=== PATIENT | female | born 1970 | race Caucasian/White ===

== ENCOUNTER 2020-06-09 16:00 | Outpatient (CLI) | payer OTHER, SELFPAY ==
[2020-06-09 19:26] LABS: Add Urine Microscopic? YES; Appearance Urine Cloudy (Clear); Bacteria Urine 1+ /hpf; Bilirubin Urine Negative (Negative); Blood Urine 3+ (Negative); Color Urine Yellow (Yellow); Glucose Urine UA Negative (Negative); Ketones Urine Trace mg/dL (Negative); Leukocyte Esterase Ur 3+ LEU/UL (NEGATIVE); Mucus Urine Few /lpf; Nitrate Urine Positive (Negative); Protein Urine 2+ mg/dL (Negative); RBC Urine 21-50 /hpf (0-2); Squamous Epithelial Cell Urine Many /hpf (Few); Urobilinogen Urine Negative mg/dL (<2.0); WBC Clumps Urine Present /HPF; WBC Urine >75 /hpf (0-3)
[2020-06-09 19:47] LABS: Vitamin D 25 Hydroxy 58.6 ng/mL
== END 2020-06-09 16:01 | disposition home or self-care (01) ==
PROVIDERS: PCP Family Medicine; Visit Provider Family Medicine
DX: R79.89 Other specified abnormal findings of blood chemistry (principal); N39.0 Urinary tract infection, site not specified; J45.909 Unspecified asthma, uncomplicated
CPT/HCPCS: 36415; 81001; 82306; 87077; 87086; 87088; 87186

== ENCOUNTER 2020-10-03 10:52 | Outpatient (CLI) | payer OTHER, SELFPAY ==
[2020-10-04 10:41] LABS: Add Urine Microscopic? YES; Appearance Urine Clear (Clear); Bilirubin Urine Negative (Negative); Blood Urine 1+ (Negative); Color Urine Yellow (Yellow); Glucose Urine UA Negative (Negative); Ketones Urine Trace mg/dL (Negative); Leukocyte Esterase Ur 3+ LEU/UL (NEGATIVE); Mucus Urine Rare /lpf; Nitrate Urine Negative (Negative); Protein Urine Negative (Negative); RBC Urine 0-2 /hpf (0-2); Specific Grav Ur 1.012 (1.001-1.035); Squamous Epithelial Cell Urine Many /hpf (Few); Urobilinogen Urine Negative mg/dL (<2.0)
== END 2020-10-03 10:53 | disposition home or self-care (01) ==
LOC: ANHBWCLAB 10:56
PROVIDERS: PCP Family Medicine; Visit Provider Family Medicine
DX: N39.0 Urinary tract infection, site not specified (principal)
CPT/HCPCS: 81001; 87086; 87088

== ENCOUNTER → 2020-10-27 13:39 | Outpatient (CLI) | payer OTHER, SELFPAY ==
--- NOTE | ~2020-10-27 | XR_ITS ---
EXAMINATION: XR abdomen/kub 1V INDICATION: Gross hematuria TECHNIQUE: Supine views of the abdomen were obtained on 2 radiographs. COMPARISON: None FINDINGS: No urolithiasis is identified. The bowel gas pattern is normal. Cholecystectomy clips are p resent in the right upper quadrant. The visualized lung bases are clear. IMPRESSION: 1. No urolithiasis identified. Reviewed, dictated and finalized at location B.
--- NOTE | ~2020-10-27 | CT_ITS ---
EXAMINATION: CT abdomen pelvis wo/w con DATE: 10/27/2020 14:26 INDICATION: Gross hematuria TECHNIQUE: Computed tomography (CT) of the abdomen and pelvis was performed without intravenous contr ast. CT of the abdomen and pelvis was then performed with a total of 130 mL Omnipaque 350 intravenous contrast using a double-bolus technique for simultaneous opacification of the renal parenchyma and r enal collecting system. The dose-length product (DLP) was 1987.31 mGy-cm. Automated exposure control and iterative reconstruction technique were employed. COMPARISON: None FINDINGS: The lung bases are clear. The heart size is normal. The gallbladder is surgically absent. T he liver, spleen, pancreas, and adrenal glands are normal. Hypoattenuating lesions in the kidneys, me asuring up to 6 mm on the right, are too small to characterize but likely represent cysts. No stones are identified in the kidneys, ureters, or bladder. There is no hydronephrosis or hydroureter. No rubin picious renal or urothelial lesion is identified. No pathologically enlarged abdominal or pelvic lymp h nodes are identified. There is no free intraperitoneal gas or evidence of bowel obstruction. The ap pendix is normal. There is mild lumbar spondylosis. IMPRESSION: 1. No CT correlate for the patient's symptoms. Reviewed, dictated and finalized at location B.
[2020-10-27 14:04] LABS: Estimated Glomerular Filt Rate > 60
== END ==
PROVIDERS: PCP Family Medicine; Visit Provider Nurse Practitioner Adult Health
DX: R31.0 Gross hematuria (principal)
CPT/HCPCS: 74018; 74178; Q9967

== ENCOUNTER 2021-04-23 08:01 | Outpatient (CLI) | payer OTHER, SELFPAY ==
--- NOTE | 2021-04-23 13:14 | P.PCNPFT_ITS ---
PFT Procedure Performed PFT Procedure Performed Spirometry with Pre/Post Bronchodilator Plethysmography (Lung Vol) Diffusing Cap (DLCO) Flow Vol Loop PFT Interpretation Lung volumes were measured with the body plethysmography method. Lung volumes are unremarkable. Spirometry showed normal FVC, normal FEV1, borderline FEV1 to FVC ratio 68% and diminished mid expiratory flow rates consistent with small airway disease. Following administration of a bronchodilator there was no significant increase in expiratory flow rates. Lung diffusion capacity is within the normal range; the flow volume loop is consistent with small airway disease. Impression: Small airway disease with no response to bronchodilators on this te sting. Lung diffusion capacity within the normal range.
== END 2021-04-23 08:02 | disposition home or self-care (01) ==
PROVIDERS: PCP Family Medicine; Visit Provider Internal Medicine Critical Care Medicine
DX: J45.909 Unspecified asthma, uncomplicated (principal); R94.2 Abnormal results of pulmonary function studies
CPT/HCPCS: 94060; 94726; 94729

== ENCOUNTER 2021-09-03 07:30 | Outpatient (CLI) | payer OTHER, SELFPAY ==
[2021-09-03 18:25] LABS: Hematocrit 44.5 % (37.0-47.0); Hemoglobin 14.2 g/dL (12.0-15.0); Mean Corpuscular HGB Conc 31.9 g/dl (32-36); Mean Corpuscular Volume 97.2 fl (80-100); Mean Platelet Volume 10.9 fl (7.4-10.4); Platelet Count Result 200 k/mm3 (150-375); Red Blood Count 4.58 M/mm3 (4.2-5.4); Red Cell Distribution Width 13.8 % (11.5-14.5); White Blood Count 6.9 K/mm3 (4.5-10.0)
[2021-09-03 18:32] LABS: Alanine Aminotransferase 116 U/L (6-35); Albumin Level 4.8 g/dL (3.5-5.1); Alkaline Phosphatase 83 U/L (38-126); Anion Gap 11 mmol/L (8-16); Aspartate Amino Transferase 60 U/L (14-36); Bilirubin,Total 0.3 mg/dL (0.2-1.3); Blood Urea Nitrogen 17 mg/dL (7-17); Calcium 9.6 mg/dL (8.4-10.2); Carbon Dioxide 27 mmol/L (22-30); Chloride 103 mmol/L (98-107); Cholesterol 203 mg/dL (0-200); Estimated Glomerular Filt Rate > 60; Glucose 96 mg/dL (65-110); HDL Direct 57 mg/dL; Sodium 141 mmol/L (137-145); Triglycerides 101 mg/dL (<150)
[2021-09-03 18:35] LABS: Hemoglobin A1C 5.4 % (<5.7)
[2021-09-03 18:41] LABS: Appearance Urine Slightly Cloudy (Clear); Bilirubin Urine Negative (Negative); Color Urine Yellow (Yellow); Glucose Urine UA Negative (Negative); Ketones Urine 1+ mg/dL (Negative); Leukocyte Esterase Ur 1+ LEU/UL (NEGATIVE); Nitrate Urine Negative (Negative); Protein Urine Negative (Negative); Specific Grav Ur 1.015 (1.001-1.035); Urobilinogen Urine 0.2 mg/dL (<2.0)
[2021-09-03 18:43] LABS: Bacteria Urine Trace /hpf; LDL Cholesterol Direct 93 mg/dL; Mucus Urine Rare /lpf; Squamous Epithelial Cell Urine Moderate /hpf (Few)
[2021-09-03 18:44] LABS: Add Urine Microscopic? YES; Blood Urine Trace-Intact (Negative)
== END 2021-09-03 07:31 | disposition home or self-care (01) ==
PROVIDERS: PCP Family Medicine; Visit Provider Family Medicine
DX: Z01.419 Encounter for gynecological examination (general) (routine) without abnormal findings (principal); Z72.0 Tobacco use; J45.909 Unspecified asthma, uncomplicated; N30.90 Cystitis, unspecified without hematuria
CPT/HCPCS: 36415; 80053; 80061; 81001; 83036; 85027

== ENCOUNTER 2021-09-20 08:03 | Emergency (ER) | payer OTHER, SELFPAY ==
--- NOTE | 2021-09-20 08:10 | ED.FEVER ---
HPI - Fever General Stated Complaint: Urinary Problem Time Seen by Provider: 09/20/21 08:11 Source: patient and RN notes reviewed History of Present Illness HPI Narrative: Patient is a 51-year-old female who who checked into the urgent care requesting a CBC, a possible pyelonephritis and a high fevers of 105 Fahrenheit. Patient states that she was sent here by her primary care doctor after speaking over the phone, specifically to rule out further infection and obtain labs. As patient was moving to triage, she was told that we do not do blood work where we are more than happy to rule out a urinary tract infection as well as send a PCR COVID test. Patient states that she did not wish to accrue it to bills that she needed blood work and we were unable to obtain that for her. Patient was very understanding and left without assessment. Discussed with the patient the facility will make sure that her primary care doctor is aware that we do not do blood work at our facility and that we do not have any affiliation with [facility]. Patient states that she will go to [facility] for further evaluation. No acute distress noted. Patient left via private car. Related Data Allergies Allergy/AdvReac Type Severity Reaction Status Date / Time Penicillins Allergy Unknown Rash Verified 09/03/21 07:00 Sulfa (Sulfonamide Allergy Unknown unknown Verified 09/03/21 07:00 Antibiotics) dexamethasone AdvReac Unknown Unknown Unverified 09/03/21 13:45 Review of Systems Review of Systems: ROS not completed [facility] Past Medical History Medical History (Updated 09/20/21 @ 08:16 by TAYA Barros) Acute bacterial conjunctivitis of left eye Asthma Body mass index [BMI]30.0-30.9, adult (11/14/17) Eczema History of miscarriage History of vaginal delivery Lymphadenopathy Personal history of COVID-19 Tobacco abuse UTI (urinary tract infection) Surgical History Surgical History (Updated 08/22/21 @ 16:06 by Hina Petersen MA) H/O oophorectomy H/O tubal ligation 1993 History of bladder surgery History of foot surgery x2 History of hernia repair History of ovarian cystectomy x 2 [place] teeth removed Family History Family History Grandparent Diabetes mellitus Family history of arthritis Father Family history of cardiovascular disease Social History Social History Smoking packs per day: 1 Smoking cigarettes per day: 20.0 Years smoked: 30 Smoking pack-years: 30.00 Smoking status: Current every day smoker Second hand tobacco smoke exposure: Yes Alcohol intake: current Drinks per week: 0 Comments n/a Exam Narrative: Exam not completed. Course Course Level of Care: Express Care Visit Vital Signs Vital signs: not completed MDM - Fever MDM Narrative Medical decision making narrative: Patient's PCPs office called to check on the patient to see if she checked into the office. Staff member from Dr. Reynoso's office stated that the patient was very adamant about not taking Tylenol or ibuprofen to treat her fevers and she was made aware by Dr. Reynoso that our office does not have immediate PCR results for COVID nor do we do blood work. Critical Care Time Critical Care Time Critical Care Time: No Discharge Plan Discharge Clinical Impression: Fever Qualifiers: Fever type: unspecified Qualified Code(s): R50.9 - Fever, unspecified Patient Disposition: Left Without Being Sn Triaged Prescriptions: No Action nicotine (polacrilex) [Nicorette] 4 mg gum 4 mg buccal Q1H Qty: 100 1RF fluticasone propion-salmeterol [AirDuo RespiClick] 113-14 mcg/actuation aerosol powdr breath activated 1 inh inhalation BID Qty: 1 3RF Eucrisa 2 % ointment 1 applic TOPICAL BID Qty: 100 12RF fluticasone propion-salmeterol 230-21 mcg/actuation HFA aerosol inhaler 2 puff inhalation Q12H Qty:
== END 2021-09-20 08:11 | disposition left against medical advice (07) ==
PROVIDERS: PCP Family Medicine
DX: Z53.21 Procedure and treatment not carried out due to patient leaving prior to being seen by health care provider (principal)
CPT/HCPCS: 99199